=== PATIENT | male | born 1970 | race African-American/Black ===

== ENCOUNTER 2022-07-30 02:34 | Emergency (ER) | payer OTHER ==
[~2022-07-30] VITALS: Ht 182.9 cm; Wt 84.1 kg
[2022-07-30] MEDS ORDERED: LIDOCAINE 5% TRANSDERMAL PATCH TD ONE (03:00)
[2022-07-30] MEDS ORDERED: ACETAMINOPHEN 500 MG TABLET PO ONE (03:00)
[2022-07-30] MEDS ORDERED: IBUPROFEN 600 MG TABLET PO ONE (03:00)
[2022-07-30] MEDS ORDERED: IBUP-1492 PO (04:13)
[2022-07-30] MEDS ORDERED: LIDO700A15 TP (04:13)
[2022-07-30] MEDS ORDERED: ACET-66 PO (04:13)
[2022-07-30 04:36] VITALS: BP 132/79
== END 2022-07-30 05:17 | disposition home or self-care (01) ==
LOC: EMS 02:36
DX: R07.89 Other chest pain (principal); M54.9 Dorsalgia, unspecified; Y08.89XA Assault by other specified means, initial encounter; Y93.89 Activity, other specified; Y92.89 Other specified places as the place of occurrence of the external cause; Y99.8 Other external cause status
CPT/HCPCS: 71101; 99283